=== PATIENT | female | born 1995 | race Caucasian/White ===

== ENCOUNTER → 2017-03-04 | Outpatient (CLI) | payer BC | LOC: FIMAGING 07:59 | PROVIDERS: ATTEND Internal Medicine Gastroenterology | DX: K31.84 Gastroparesis (principal); R10.9 Unspecified abdominal pain | CPT/HCPCS: 78264; A9541 ==

== ENCOUNTER → 2017-04-23 | Outpatient (CLI) | payer BC | LOC: FIMAGING 09:07 | PROVIDERS: ATTEND Internal Medicine Gastroenterology | DX: R10.13 Epigastric pain (principal); R11.2 Nausea with vomiting, unspecified ==

== ENCOUNTER → 2017-07-11 | Outpatient (CLI) | payer BC | LOC: FIMAGING 12:52 | PROVIDERS: ATTEND Physician Assistant | DX: R10.13 Epigastric pain (principal) | CPT/HCPCS: A9537 ==

== ENCOUNTER → 2017-07-29 | Outpatient (CLI) | payer BC | LOC: FIMAGING 07:50 | PROVIDERS: ATTEND Internal Medicine Gastroenterology | DX: K31.84 Gastroparesis (principal); K31.89 Other diseases of stomach and duodenum | CPT/HCPCS: 78264; A9541 ==

== ENCOUNTER 2018-01-01 07:39 | Day surgery (SDC) | payer BC ==
[2018-01-01] MEDS ORDERED: BOTULINUM TOXIN TYPE A 100 UNIT VIAL ID ONE (08:15)
[2018-01-01] MEDS ORDERED: MIDAZOLAM 2 MG/2 ML VIAL ONE ×2 (08:36→09:25)
[2018-01-01] MEDS ORDERED: fentaNYL 100 MCG/2 ML INJ ONE (08:37)
--- NOTE | 2018-01-01 09:01 | PDGENHP ---
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 no tobacco. no alcohol rare Relevant Physical Exam: a+ox3. CTA. S1S2, rr. +BS, soft Cardiorespiratory Assessment: class 2
--- NOTE | 2018-01-01 09:02 | PDPROPOC ---
Sedation Plan of Care Sedation Plan of Care: mental status noted, patient educated of risks, benefits , alternatives, patient can tolerate sedation ASA Classification: ASA 2 Planned drugs: fentanyl, midazolam Mallampati Score: Class 1 Mallampati Reference Image: Patient passed 3-3-2 rule?: Yes
--- NOTE | 2018-01-01 09:38 | POSTOPPROG ---
Post Op Note Date of Operation: 01/01/18 Surgeon: Javad Chaney Anesthesia: IV Sedation (versed 10mg and fetnaly 100 mcg) Pre-op Diagnosis: gastroparesis Post-op Diagnosis: gastroparesis, mild duodentitis, mild gastritis, query duodenal compression Indication: sx's c/w gsatropareis known dx Procedure: egd and inject BOTOX and cold bx Findings: mild gastritis duodenitis, query duodenal compression? Inf/Abcess present in the surg proc area at time of surgery?: No EBL: Minimal (few ml) Total fluids administered: 500 ml LR Complications: none immediate
[2018-01-01 10:24] VITALS: PULSE 64; TEMP 97.5
--- NOTE | 2018-01-01 10:44 | GIREPORT ---
[facility] Surgical Services - Endoscopy Department Patient Name: Pedro Tobin Procedure Date: 01/01/2018 8:32 AM Patient Type: Outpatient Attending MD/ ER Physician: Dc Moscoso Procedure: Upper GI endoscopy Indications: Gastroparesis, For therapy of gastroparesis Providers: Costa Chaney MD Referring MD: please send copy to the gastroparesis specailist - Migdalia Darby MD Requesting Provider: Stephanie Landon MD Medicines: Fentanyl 100 micrograms IV, Midazolam 10 mg IV Complications: No immediate complications. Estimated blood loss: Minimal. Description of Procedure: After obtaining informed consent, the endoscope was passed under direct vision. Throughout the procedure, the patient's blood pressure, pulse, and oxygen saturations were monitored continuously. The Endoscope was intro duced through the mouth, and advanced to the third part of duodenum. The uppe r GI endoscopy was accomplished without difficulty. The patient tolerated th e procedure well. Findings: The examined esophagus was normal. Scattered mild inflammation characterized by erythema and granularity w as found in the gastric antrum. Biopsies were taken with a cold forceps fo r histology. Estimated blood loss was minimal. Patchy mildly erythematous mucosa without active bleeding and with no stigmata of bleeding was found in the duodenal bulb and in the second portion of the duodenum. Biopsies were taken with a cold forceps for histology. Estimated blood loss was minimal. An possible acquired extrinsic moderate stenosis was found in the secon d portion of the duodenum and was traversed. The exam was otherwise without abnormality. Estimated Blood Loss: Estimated blood loss was minimal. Post Op Diagnosis: - Normal esophagus. - Gastritis. Biopsied. - Erythematous duodenopathy. Biopsied. - Query acquired duodenal stenosis? - The examination was otherwise normal. Recommendation: - Await pathology results. - My office will call with the pathology result with 5-7 days. If you h ave not heard from my office by 12-14, do not assume the pathology is walter l, please call [phone] to get the pathology results. - Use Zantac (ranitidine) 150 mg PO at bedtime. Can be up to 300mg po Q HS - Continue present medications. - If this is not helpful, will order imaging study to evaluate possible extrinsic compression. Could this be SMA syndrome from weight loss? - Resume previous diet. - Discharge patient to home (ambulatory). - Return to referring physician as previously scheduled. - Return to endoscopist PRN. - Thank you for allowing me to help in your patient's care. Do not hesi wong to call with any questions. Attending Participation: I personally performed the entire procedure. Shiv Skelton M.D Costa Chaney MD 01/01/2018 10:43:49 AM This report has been signed electronicallyMathew MD Shiv Number of Addenda: 0 Note Initiated On: 01/01/2018 8:32 AM [email or web address]
[2018-01-01 11:11] VITALS: BP 108/70; RESP 14; O2SAT 95
== END 2018-01-01 11:06 | disposition home or self-care (01) ==
LOC: FSGY 07:39
PROVIDERS: ATTEND Internal Medicine Gastroenterology
PROC: 0DB98ZX Excision of Duodenum, Via Natural or Artificial Opening Endoscopic, Diagnostic (ICD-10-PCS; principal; 2018-01-01 09:00)
PROC: 0DB68ZX Excision of Stomach, Via Natural or Artificial Opening Endoscopic, Diagnostic (ICD-10-PCS; principal; 2018-01-01 09:00)
DX: K31.84 Gastroparesis (principal); R10.13 Epigastric pain
CPT/HCPCS: J0585; J2250; J3010

== ENCOUNTER 2018-05-07 11:27 | Day surgery (SDC) | payer BC ==
[2018-05-07] MEDS ORDERED: fentaNYL 100 MCG/2 ML INJ IVP PRN (12:59)
[2018-05-07] MEDS ORDERED: NS 500 ML IV PRN (12:59)
[2018-05-07] MEDS ORDERED: PROMETHAZINE HCL 25 MG/ML INJ IVP PRN (12:59)
[2018-05-07] MEDS ORDERED: ALBUTEROL 3 ML DEYVIAL IH PRN (12:59)
[2018-05-07] MEDS ORDERED: NALOXONE HCL 0.4 MG/ML INJ IVP PRN (12:59)
[2018-05-07] MEDS ORDERED: DEXAMETHASONE 4 MG/ML VIAL IVP PRN (12:59)
--- NOTE | 2018-05-07 12:59 | PDANEPAE ---
ANE History of Present Illness here for EGD ANE Past Medical History - Cardiovascular History Hx Hypertension: No Hx Arrhythmias: No Hx Chest Pain: No Hx Coronary Artery / Peripheral Vascular Disease: No Hx CHF / Valvular Disease: No Hx Palpitations: No - Pulmonary History Hx COPD: No Hx Asthma/Reactive Airway Disease: No Hx Recent Upper Respiratory Infection: No Hx Oxygen in Use at Home: No Hx Sleep Apnea: No Sleep Apnea Screening Result - Last Documented: Negative - Neurologic History Hx Cerebrovascular Accident: No Hx Seizures: No Hx Dementia: No - Endocrine History Hx Diabetes: No - Renal History Hx Renal Disorders: No - Liver History Hx Hepatic Disorders: No - Neurological & Psychiatric Hx Hx Neurological and Psychiatric Disorders: Yes Neurological / Psychiatric History Comment: depression,anxiety - Cancer History Hx Cancer: No - Congenital Disorder History Hx Congenital Disorders: No - GI History Hx Gastrointestinal Disorders: Yes Gastrointestinal History Comment: gastroperisis, nausea,pain decreased appetite - Other Health History Other Health History: none - Chronic Pain History Chronic Pain: No - Surgical History Prior Surgeries: endoscopies ANE Review of Systems Review of systems is: negative Review of Systems: - Exercise capacity Exercise capacity: >=4 METS METS (RN): 6 METS ANE Patient History - Allergies Allergies/Adverse Reactions: codeine Allergy (Intermediate, Verified 04/30/18 11:56) Other-Enter Comments - NPO status NPO Status: no food or drink >8 hours NPO Since - Liquids (Date): 05/06/18 NPO Since - Liquids (Time): 23:00 NPO Since - Solids (Date): 05/06/18 NPO Since - Solids (Time): 23:00 - Anes Hx Anes Hx: no prior problems - Smoking Hx Smoking Status: Former smoker - Family Anes Hx Family Hx Anesthesia Complications: none ANE Labs/Vital Signs - Vital Signs Vital Signs: reviewed preoperatively; see RN documention for details Blood Pressure: 112/76 Heart Rate: 72 Respiratory Rate: 16 O2 Sat (%): 96 Height: 167.64 cm Weight: 58.06 kg ANE Physical Exam - Airway Neck exam: FROM Mallampati Score: Class 1 - Pulmonary Pulmonary: no respiratory distress - Cardiovascular Cardiovascular: regular rate and rhythym - ASA Status ASA Status: I ANE Anesthesia Plan Anesthesia Plan: GA with mask
--- NOTE | 2018-05-07 13:04 | PDGENHP ---
History & Physical Chief Complaint: gastroparesis responding to botox History of Present Illness: gastroparesis from viral illness Pertinent Past, Social, Family History: gastroparesis. no tobacco. rare alcohol Relevant Physical Exam: a+ox3. cta. s1s2+bs, soft epi tenderness Cardiorespiratory Assessment: class 2
[2018-05-07] MEDS ORDERED: BOTULINUM TOXIN TYPE A 100 UNIT VIAL MISC ONE ×2 (13:15→13:31)
[2018-05-07] MEDS ORDERED: PROPOFOL/EMULSION 500 MG/50 ML BOTTLE IV ONE (13:18)
--- NOTE | 2018-05-07 14:15 | GIREPORT ---
[facility] Surgical Services - Endoscopy Department Patient Name: Pedro Tobin Procedure Date: 05/07/2018 1:20 PM Patient Type: Outpatient Attending MD/ ER Physician: Dc Moscoso Procedure: Upper GI endoscopy Indications: For therapy of gastroparesis, Nausea Providers: Costa Chaney MD Referring MD: Stephanie Branham MD Medicines: Total IV Anesthesia (TIVA) = IV general w/o airway Complications: No immediate complications. Estimated blood loss: Minimal. Description of Procedure: After obtaining informed consent, the endoscope was passed under direct vision. Throughout the procedure, the patient's blood pressure, pulse, and oxygen saturations were monitored continuously. The Endoscope was intro duced through the mouth, and advanced to the third part of duodenum. The uppe r GI endoscopy was accomplished without difficulty. The patient tolerated th e procedure well. Findings: The examined esophagus was normal. Scattered mild inflammation characterized by adherent blood, erythema, friability and granularity was found in the gastric antrum. Biopsies we re taken with a cold forceps for histology. Estimated blood loss was minim al. The pylorus was normal. Area was successfully injected with 10 mL botul inum toxin for drug delivery. Estimated blood loss was minimal. A mild benign deformity was found in the duodenal bulb. The second portion of the duodenum and third portion of the duodenum we re normal. The exam was otherwise without abnormality. Estimated Blood Loss: Estimated blood loss was minimal. Post Op Diagnosis: - Normal esophagus. - Gastritis. Biopsied. - Normal pylorus. Injected. - Duodenal deformity. - Normal second portion of the duodenum and third portion of the duoden um. - The examination was otherwise normal. Recommendation: - Await pathology results. - My office will call with the pathology result with 5-7 days. If you h ave not heard from my office by 14, do not assume the pathology is walter l, please call [phone] to get the pathology results. - Follow an antireflux regimen. - Use Protonix (pantoprazole) 40 mg PO daily. Take 30-60 minutes before breakfast for one month - Use Zantac (ranitidine) 300 mg PO at bedtime. Take for one month - If above not helpful, consider sulcralfate for possible bile gastriti s and consider imaging study. - Discharge patient to home (ambulatory). - Return to endoscopist in 12 weeks. - Return to primary care physician as previously scheduled. - Thank you for allowing me to help in your patient's care. Do not hesi wong to call with any questions. Attending Participation: I personally performed the entire procedure. Shiv Skelton M.D Costa Chaney MD 05/07/2018 2:14:59 PM This report has been signed electronicallyMathew MD Shiv Number of Addenda: 0 Note Initiated On: 05/07/2018 1:20 PM [email or web address]
[2018-05-07 14:42] VITALS: BP 107/73
== END 2018-05-07 14:40 | disposition home or self-care (01) ==
LOC: FSGY 11:27
PROVIDERS: ATTEND Internal Medicine Gastroenterology
PROC: 3E0G8GC Introduction of Other Therapeutic Substance into Upper GI, Via Natural or Artificial Opening Endoscopic (ICD-10-PCS; principal; 2018-05-07 12:45)
PROC: 0DB78ZX Excision of Stomach, Pylorus, Via Natural or Artificial Opening Endoscopic, Diagnostic (ICD-10-PCS; principal; 2018-05-07 12:45)
DX: K31.84 Gastroparesis (principal); R10.13 Epigastric pain; F41.8 Other specified anxiety disorders
CPT/HCPCS: J0585; J2704